=== PATIENT | male | born 1985 | race Caucasian/White ===

== ENCOUNTER 2023-12-26 11:07 | Inpatient (IN) | payer BC ==
[2023-12-26 11:23] VITALS: BMI 18.8
[2023-12-26] MEDS ORDERED: DICYCLOMINE HCL 10 MG CAPSULE PO PRN (13:12)
[2023-12-26] MEDS ORDERED: NALOXONE HCL (KLOXXADO) 8 MG SPRAY NS PRN (13:12)
[2023-12-26] MEDS ORDERED: BENZOCAINE/MENTHOL (CHLORASEPTIC ) LOZENGE MM PRN (13:12)
[2023-12-26] MEDS ORDERED: BENZONATATE 200 MG CAPSULE PO PRN (13:12)
[2023-12-26] MEDS ORDERED: BISMUTH SUBSALICYLATE 262 MG/15 ML BTL PO PRN (13:12)
[2023-12-26] MEDS ORDERED: NALOXONE HCL 0.4 MG/ML VIAL IM PRN (13:12)
[2023-12-26] MEDS ORDERED: LOPERAMIDE HCL 2 MG CAPSULE PO PRN (13:12)
[2023-12-26] MEDS ORDERED: POLYETHYLENE GLYCOL (HEALTHYLAX) 3350 17 GM PACKET PO PRN (13:12)
[2023-12-26] MEDS ORDERED: MAG HYDROX/AL HYDROX/SIMETH 30 ML UNIT-DOSE CUP PO PRN (13:12)
[2023-12-26] MEDS ORDERED: MAGNESIUM HYDROX 2400MG/30ML ORAL SUSPENSION 30 ML CUP PO PRN (13:12)
[2023-12-26] MEDS ORDERED: ACETAMINOPHEN 325 MG TABLET (FP) PO PRN (13:12)
[2023-12-26] MEDS ORDERED: guaiFENesin 600 MG TABLET.ER (FP) PO PRN (13:12)
[2023-12-26] MEDS ORDERED: ONDANSETRON *ODT* 4 MG TABLET SL PRN (13:12)
[2023-12-26] MEDS ORDERED: IBUPROFEN 400 MG TABLET (FP) PO PRN (13:12)
[2023-12-26] MEDS ORDERED: chlordiazePOXIDE HCL 25 MG CAPSULE PO PRN (13:15)
[2023-12-26] MEDS: chlordiazePOXIDE HCL 25 MG CAPSULE PO SCH (17:26)
[2023-12-26] MEDS: MELATONIN 5 MG TABLETS PO SCH (22:15)
[2023-12-26] MEDS: THIAMINE HCL 100 MG TABLET (FP) PO SCH (22:15)
[2023-12-27] MEDS: PRENATAL VITAMINS W/ FOLIC ACID TABLET (FP) PO SCH (10:08)
[2023-12-27] MEDS: NICOTINE 21 MG/24 HOURS TOPICAL PATCH TD SCH (10:08)
[2023-12-27] MEDS: NICOTINE POLACRILEX 4 MG GUM BUC PRN (10:11)
[2023-12-27 10:33] LABS: HEMATOCRIT 45.8 % (35.4-49); HEMOGLOBIN 15.4 GM/dL (11.7-16.9); MCH 33.3 pg (25.7-33.7); MCHC 33.7 g/dl (32.0-35.9); MEAN CELL VOLUME 98.9 fl (80-96); MEAN PLT VOLUME 8.3 fl (7.5-11.1); PLATELET COUNT 300 10^3/uL (134-434); RBC 4.63 M/mm3 (4.00-5.60); RDW 14.7 % (11.9-15.9); WHITE BLOOD COUNT 6.2 K/mm3 (4.0-10.0)
[2023-12-27 10:43] LABS: POTASSIUM 3.9 mmol/L (3.5-5.1)
[2023-12-27 10:47] LABS: ALBUMIN 3.9 g/dl (3.4-5.0); BLOOD UREA NITROGEN 10.4 mg/dL (7-18); CALCIUM 9.4 mg/dL (8.5-10.1)
[2023-12-27 10:51] LABS: CREATININE 0.8 mg/dL (0.55-1.3)
[2023-12-27 10:52] LABS: BILIRUBIN,TOTAL 0.9 mg/dL (0.2-1)
[2023-12-27 10:53] LABS: TOT PROT 7.4 g/dl (6.4-8.2)
[2023-12-27] MEDS: METHOCARBAMOL 500 MG TABLET PO PRN (17:30)
[2023-12-27] MEDS: hydrOXYzine PAMOATE 25 MG CAPSULE (FP) PO PRN (17:30)
[2023-12-27] MEDS: traZODone HCL 100 MG TABLET (FP) PO SCH (22:34)
[2023-12-28] MEDS: chlordiazePOXIDE HCL 25 MG CAPSULE PO SCH (06:11)
[2023-12-28 09:59] VITALS: RESP 16
[2023-12-28] MEDS: FLU VACCINE (FLULAVAL) PF 60 MCG/0.5 ML SYRINGE 2023-2024 IM ONE (12:18)
[2023-12-28 16:36] VITALS: BP 100/67; TEMP 97.5
[2023-12-28 17:15] VITALS: PULSE 71
[2023-12-28] MEDS: IBUPROFEN 600 MG TABLET (FP) PO PRN (18:20)
[2023-12-29] MEDS ORDERED: chlordiazePOXIDE HCL 10 MG CAPSULE PO PRN
[2023-12-29] MEDS: chlordiazePOXIDE HCL 10 MG CAPSULE PO SCH (05:07)
[2023-12-30] MEDS ORDERED: chlordiazePOXIDE HCL 10 MG CAPSULE PO SCH (05:00)
[2023-12-31] MEDS ORDERED: chlordiazePOXIDE HCL 10 MG CAPSULE PO ONE (05:00)
== END 2023-12-29 01:00 | disposition short-term general hospital (02) | DRG 775 ==
LOC: YASAS 11:07 → Y6N 13:36
PROVIDERS: ADMIT Allergy & Immunology; ATTEND Surgery
PROC: HZ2ZZZZ Detoxification Services for Substance Abuse Treatment (ICD-10-PCS; principal; 2023-12-25)
DX: F10.230 Alcohol dependence with withdrawal, uncomplicated (principal); F17.210 Nicotine dependence, cigarettes, uncomplicated; F10.282 Alcohol dependence with alcohol-induced sleep disorder; F10.24 Alcohol dependence with alcohol-induced mood disorder; F41.9 Anxiety disorder, unspecified; F32.A Depression, unspecified; H55.00 Unspecified nystagmus; S79.912A Unspecified injury of left hip, initial encounter; W19.XXXA Unspecified fall, initial encounter; Y92.231 Patient bathroom in hospital as the place of occurrence of the external cause; Z62.810 Personal history of physical and sexual abuse in childhood; Z63.8 Other specified problems related to primary support group; Z91.410 Personal history of adult physical and sexual abuse; Z63.0 Problems in relationship with spouse or partner
CPT/HCPCS: 36415; 80053; 80307; 85027; 86780; 87635; 90686; 93005; 93010; G0008

== ENCOUNTER 2023-12-28 19:00 | Inpatient (IN) | payer BC ==
[2023-12-28] MEDS: MECLIZINE HCL 25 MG TABLET (FP) PO ONE (20:56)
[2023-12-28] MEDS ORDERED: MECLIZINE HCL 25 MG TABLET (FP) ONE (20:57)
[2023-12-28 23:29] LABS: BASO % 1.3 % (0-2.0); EOS % 2.6 % (0-4.5); HEMATOCRIT 43.7 % (35.4-49); HEMOGLOBIN 14.6 GM/dL (11.7-16.9); LYMPH % 23.4 % (8-40); MCH 33.3 pg (25.7-33.7); MCHC 33.5 g/dl (32.0-35.9); MEAN CELL VOLUME 99.3 fl (80-96); MEAN PLT VOLUME 7.6 fl (7.5-11.1); MONO % 4.5 % (3.8-10.2); NEUT % 68.2 % (42.8-82.8); PLATELET COUNT 219 10^3/uL (134-434); RDW 14.4 % (11.9-15.9); WHITE BLOOD COUNT 6.7 K/mm3 (4.0-10.0)
[2023-12-28 23:44] LABS: CALCIUM 9.8 mg/dL (8.5-10.1)
[2023-12-28 23:47] LABS: CREATININE 0.7 mg/dL (0.55-1.3)
[2023-12-29] MEDS ORDERED: chlordiazePOXIDE HCL 10 MG CAPSULE PO PRN
[2023-12-29] MEDS ORDERED: chlordiazePOXIDE HCL 25 MG CAPSULE PO PRN (02:32)
[2023-12-29] MEDS: NICOTINE 21 MG/24 HOURS TOPICAL PATCH TD SCH (06:03)
[2023-12-29] MEDS: MECLIZINE HCL 25 MG TABLET (FP) PO SCH (06:03)
[2023-12-29] MEDS: chlordiazePOXIDE HCL 10 MG CAPSULE PO SCH (06:03)
[2023-12-29] MEDS: THIAMINE HCL 100 MG TABLET (FP) PO SCH (06:03)
[2023-12-29] MEDS: FOLIC ACID 1 MG TABLET (FP) PO SCH (06:03)
[2023-12-29] MEDS ORDERED: FOLIC ACID 1 MG TABLET (FP) ONE ×2 (06:04→10:40)
[2023-12-29] MEDS ORDERED: MECLIZINE HCL 25 MG TABLET (FP) ONE ×2 (06:04→10:49)
[2023-12-29] MEDS ORDERED: THIAMINE HCL 100 MG TABLET (FP) ONE ×2 (06:04→10:40)
[2023-12-29] MEDS ORDERED: chlordiazePOXIDE HCL 10 MG CAPSULE ONE (06:05)
[2023-12-29] MEDS ORDERED: NICOTINE 21 MG/24 HOURS TOPICAL PATCH ONE ×2 (06:05→10:41)
[2023-12-29 06:46] LABS: HEMATOCRIT 43.1 % (35.4-49); HEMOGLOBIN 14.9 GM/dL (11.7-16.9); MCH 34.4 pg (25.7-33.7); MCHC 34.6 g/dl (32.0-35.9); MEAN CELL VOLUME 99.4 fl (80-96); MEAN PLT VOLUME 8.4 fl (7.5-11.1); PLATELET COUNT 209 10^3/uL (134-434); RBC 4.33 M/mm3 (4.00-5.60); WHITE BLOOD COUNT 6.2 K/mm3 (4.0-10.0)
[2023-12-29 07:04] LABS: CALCIUM 8.6 mg/dL (8.5-10.1)
[2023-12-29 07:05] LABS: BLOOD UREA NITROGEN 10.5 mg/dL (7-18); MAGNESIUM 1.9 mg/dL (1.8-2.4)
[2023-12-29 07:08] LABS: CREATININE 0.6 mg/dL (0.55-1.3)
[2023-12-29 07:09] LABS: BILIRUBIN,TOTAL 0.3 mg/dL (0.2-1)
[2023-12-29 07:13] LABS: ALBUMIN 2.9 g/dl (3.4-5.0)
[2023-12-29] MEDS: INSULIN ASPART SLIDING SCALE (NOVOLOG) 1 VIAL SQ SCH (08:36)
[2023-12-29] MEDS ORDERED: ENOXAPARIN NA (PORCINE) 40 MG/0.4 ML DISP.SYRIN SQ ONE (10:41)
[2023-12-29] MEDS: ENOXAPARIN NA (PORCINE) 40 MG/0.4 ML DISP.SYRIN SQ SCH (10:48)
[2023-12-29] MEDS ORDERED: chlordiazePOXIDE HCL 25 MG CAPSULE PO SCH (18:00)
[2023-12-29] MEDS: THIAMINE HCL 200 MG/2 ML VIAL IVPB SCH (18:48)
[2023-12-29] MEDS: chlordiazePOXIDE HCL 25 MG CAPSULE PO SCH (23:21)
[2023-12-30 00:28] LABS: PH,URINE 6.5 (5.0-8.0); URINE APPEARANCE CLEAR; URINE BILIRUBIN NEGATIVE (NEGATIVE); URINE COLOR YELLOW; URINE GLUCOSE (UA) NEGATIVE (NEGATIVE); URINE KETONE NEGATIVE (NEGATIVE); URINE LEUK ESTERASE NEGATIVE (NEGATIVE); URINE NITRITE NEGATIVE (NEGATIVE); URINE PROTEIN NEGATIVE (NEGATIVE); URINE UROBILINOGEN 0.2 mg/dL (0.2-1.0)
[2023-12-30] MEDS: chlordiazePOXIDE HCL 10 MG CAPSULE PO ONE (06:35)
[2023-12-30] MEDS ORDERED: chlordiazePOXIDE HCL 25 MG CAPSULE PO SCH (08:00)
[2023-12-30] MEDS: ASPIRIN 81 MG CHEWABLE TABLETS PO SCH (10:47)
[2023-12-30 10:55] LABS: BASO % 0.6 % (0-2.0); EOS % 2.7 % (0-4.5); HEMATOCRIT 43.9 % (35.4-49); LYMPH % 24.5 % (8-40); MCH 33.4 pg (25.7-33.7); MCHC 34.1 g/dl (32.0-35.9); MEAN PLT VOLUME 7.7 fl (7.5-11.1); NEUT % 67.2 % (42.8-82.8); PLATELET COUNT 198 10^3/uL (134-434); RBC 4.48 M/mm3 (4.00-5.60); RDW 13.8 % (11.9-15.9); WHITE BLOOD COUNT 6.5 K/mm3 (4.0-10.0)
[2023-12-30 11:10] LABS: POTASSIUM 3.7 mmol/L (3.5-5.1)
[2023-12-30 11:18] LABS: CALCIUM 9.1 mg/dL (8.5-10.1); CREATININE 0.9 mg/dL (0.55-1.3)
[2023-12-30 11:19] LABS: ALBUMIN 3.2 g/dl (3.4-5.0); BLOOD UREA NITROGEN 11.7 mg/dL (7-18)
[2023-12-30 11:20] LABS: BILIRUBIN,TOTAL 0.3 mg/dL (0.2-1); TOT PROT 6.5 g/dl (6.4-8.2)
[2023-12-30] MEDS: chlordiazePOXIDE HCL 25 MG CAPSULE PO SCH (14:00)
[2023-12-30 16:19] VITALS: BMI 19.3
[2023-12-30] MEDS: THIAMINE HCL 200 MG/2 ML VIAL IVPB SCH (18:40)
[2023-12-30] MEDS: ATORVASTATIN CA 40 MG TABLET (FP) PO SCH (21:29)
[2023-12-30] MEDS: traZODone HCL 100 MG TABLET (FP) PO SCH (21:29)
[2023-12-30] MEDS: busPIRone HCL 10 MG TABLET (FP) PO SCH (21:31)
[2023-12-31] MEDS ORDERED: NICOTINE POLACRILEX 4 MG GUM BUC PRN (08:51)
[2023-12-31 09:01] LABS: BASO % 1.2 % (0-2.0); EOS % 4.1 % (0-4.5); HEMATOCRIT 43.3 % (35.4-49); HEMOGLOBIN 14.8 GM/dL (11.7-16.9); LYMPH % 34.6 % (8-40); MCH 33.8 pg (25.7-33.7); MCHC 34.3 g/dl (32.0-35.9); MEAN CELL VOLUME 98.6 fl (80-96); MEAN PLT VOLUME 7.7 fl (7.5-11.1); MONO % 5.9 % (3.8-10.2); NEUT % 54.2 % (42.8-82.8); PLATELET COUNT 193 10^3/uL (134-434); RDW 14.2 % (11.9-15.9)
[2023-12-31 09:14] LABS: POTASSIUM 4.2 mmol/L (3.5-5.1)
[2023-12-31 09:20] LABS: BLOOD UREA NITROGEN 16.7 mg/dL (7-18); CALCIUM 8.7 mg/dL (8.5-10.1); MAGNESIUM 2.1 mg/dL (1.8-2.4)
[2023-12-31 09:22] LABS: PHOSPHOROUS 4.4 mg/dL (2.5-4.9)
[2023-12-31 09:24] LABS: BILIRUBIN,TOTAL 0.3 mg/dL (0.2-1)
[2023-12-31] MEDS: PANTOPRAZOLE 40 MG TABLET PO SCH (09:27)
[2024-01-01 10:23] LABS: BASO % 1.9 % (0-2.0); EOS % 3.9 % (0-4.5); HEMATOCRIT 42.7 % (35.4-49); HEMOGLOBIN 14.5 GM/dL (11.7-16.9); LYMPH % 29.8 % (8-40); MCH 33.8 pg (25.7-33.7); MCHC 33.9 g/dl (32.0-35.9); MEAN CELL VOLUME 99.7 fl (80-96); MEAN PLT VOLUME 7.8 fl (7.5-11.1); NEUT % 57.4 % (42.8-82.8); PLATELET COUNT 175 10^3/uL (134-434); RBC 4.28 M/mm3 (4.00-5.60); RDW 14.1 % (11.9-15.9); WHITE BLOOD COUNT 5.4 K/mm3 (4.0-10.0)
[2024-01-01 11:12] LABS: POTASSIUM 4.3 mmol/L (3.5-5.1)
[2024-01-01 11:16] LABS: ALBUMIN 3.1 g/dl (3.4-5.0); BLOOD UREA NITROGEN 12.7 mg/dL (7-18)
[2024-01-01 11:22] LABS: BILIRUBIN,TOTAL 0.2 mg/dL (0.2-1); TOT PROT 6.2 g/dl (6.4-8.2)
[2024-01-01 11:23] LABS: CALCIUM 9.1 mg/dL (8.5-10.1)
[2024-01-01] MEDS: ATORVASTATIN CA 80 MG TABLET (FP) PO SCH (21:30)
[2024-01-02] MEDS: THIAMINE HCL 200 MG/2 ML VIAL IVPB SCH (09:20)
[2024-01-02 10:30] LABS: BASO % 2.3 % (0-2.0); EOS % 3.6 % (0-4.5); HEMATOCRIT 41.8 % (35.4-49); HEMOGLOBIN 14.2 GM/dL (11.7-16.9); LYMPH % 31.4 % (8-40); MCH 33.7 pg (25.7-33.7); MCHC 33.8 g/dl (32.0-35.9); MEAN CELL VOLUME 99.7 fl (80-96); MEAN PLT VOLUME 8.4 fl (7.5-11.1); MONO % 7.9 % (3.8-10.2); NEUT % 54.8 % (42.8-82.8); PLATELET COUNT 187 10^3/uL (134-434); RDW 14.1 % (11.9-15.9)
[2024-01-02 10:38] LABS: POTASSIUM 4.2 mmol/L (3.5-5.1)
[2024-01-02 10:40] LABS: ALBUMIN 3.1 g/dl (3.4-5.0); CALCIUM 8.6 mg/dL (8.5-10.1)
[2024-01-02 10:41] LABS: BLOOD UREA NITROGEN 13.8 mg/dL (7-18)
[2024-01-02 10:45] LABS: BILIRUBIN,TOTAL 0.2 mg/dL (0.2-1)
[2024-01-02 10:46] LABS: CREATININE 1.1 mg/dL (0.55-1.3)
[2024-01-02 16:12] VITALS: BP 104/58; PULSE 70; RESP 16; TEMP 97.9
== END 2024-01-02 15:15 | disposition other institution (70) | DRG 421 ==
LOC: JER 19:00 → JERBED 23:07 → J5S 12-29 14:22
PROVIDERS: ADMIT Internal Medicine
PROC: HZ2ZZZZ Detoxification Services for Substance Abuse Treatment (ICD-10-PCS; principal; 2023-12-28)
DX: E51.2 Wernicke's encephalopathy (principal); R42 Dizziness and giddiness; F10.239 Alcohol dependence with withdrawal, unspecified; F41.8 Other specified anxiety disorders; H83.09 Labyrinthitis, unspecified ear; H81.09 Meniere's disease, unspecified ear; H81.10 Benign paroxysmal vertigo, unspecified ear
CPT/HCPCS: 36415; 70450-TC; 70551-TC; 73502-TC-LT-FY; 80048; 80053; 81003; 82607; 82746; 82962; 83036; 83735; 84100; 84484; 85025; 85027; 87635; 93005; 93010; 97116-GP; 97161-GP; 99285-25

== ENCOUNTER 2024-01-02 15:36 | Inpatient (IN) | payer BC ==
[2024-01-02 16:56] VITALS: BMI 20.3
[2024-01-02] MEDS ORDERED: LOPERAMIDE HCL 2 MG CAPSULE PO PRN (19:04)
[2024-01-02] MEDS ORDERED: MAGNESIUM HYDROX 2400MG/30ML ORAL SUSPENSION 30 ML CUP PO PRN (19:04)
[2024-01-02] MEDS ORDERED: MAG HYDROX/AL HYDROX/SIMETH 30 ML UNIT-DOSE CUP PO PRN (19:04)
[2024-01-02] MEDS ORDERED: NALOXONE HCL 0.4 MG/ML VIAL IM PRN (19:04)
[2024-01-02] MEDS ORDERED: BENZONATATE 200 MG CAPSULE PO PRN (19:04)
[2024-01-02] MEDS ORDERED: POLYETHYLENE GLYCOL (HEALTHYLAX) 3350 17 GM PACKET PO PRN (19:04)
[2024-01-02] MEDS ORDERED: ACETAMINOPHEN 325 MG TABLET (FP) PO PRN (19:04)
[2024-01-02] MEDS ORDERED: guaiFENesin 600 MG TABLET.ER (FP) PO PRN (19:04)
[2024-01-02] MEDS ORDERED: BENZOCAINE/MENTHOL (CHLORASEPTIC ) LOZENGE MM PRN (19:04)
[2024-01-02] MEDS ORDERED: NALOXONE HCL (KLOXXADO) 8 MG SPRAY NS PRN (19:04)
[2024-01-02] MEDS ORDERED: TUBERCULIN PPD 5 TU/0.1ML VIAL ID ONE ×2 (22:44→23:14)
[2024-01-02] MEDS: THIAMINE HCL 100 MG TABLET (FP) PO SCH (22:53)
[2024-01-02] MEDS: ATORVASTATIN CA 80 MG TABLET (FP) PO SCH (22:53)
[2024-01-02] MEDS: traZODone HCL 100 MG TABLET (FP) PO SCH (22:53)
[2024-01-02] MEDS: MELATONIN 5 MG TABLETS PO SCH (22:57)
[2024-01-02] MEDS: TUBERCULIN PPD 5 TU/0.1ML SYRINGE (IN PATIENT USE ONLY) ID ONE (22:57)
[2024-01-03] MEDS: PRENATAL VITAMINS W/ FOLIC ACID TABLET (FP) PO SCH (09:32)
[2024-01-03] MEDS: ASPIRIN 81 MG CHEWABLE TABLETS PO SCH (09:32)
[2024-01-03] MEDS: MECLIZINE HCL 25 MG TABLET (FP) PO PRN (10:21)
[2024-01-03] MEDS: PANTOPRAZOLE 40 MG TABLET PO SCH (10:21)
[2024-01-03] MEDS: NICOTINE 21 MG/24 HOURS TOPICAL PATCH TD SCH (10:22)
[2024-01-04] MEDS: MELATONIN 5 MG TABLETS PO SCH (21:20)
[2024-01-06] MEDS ORDERED: NICOTINE 21 MG/24 HOURS TOPICAL PATCH TD PRN (10:12)
[2024-01-07] MEDS: hydrOXYzine PAMOATE 25 MG CAPSULE (FP) PO PRN (12:58)
[2024-01-09] MEDS: NICOTINE POLACRILEX 2 MG GUM BUC PRN (13:04)
[2024-01-14] MEDS: traZODone HCL 100 MG TABLET (FP) PO SCH (21:13)
[2024-01-20] MEDS: NALTREXONE HCL 50 MG TABLET PO ONE (14:48)
[2024-01-22] MEDS: NALTREXONE HCL 50 MG TABLET PO SCH (10:19)
[2024-01-23] MEDS: NALTREXONE MICROSPHERES (VIVITROL) 380 MG DISP.SYRIN IM ONE (12:37)
[2024-01-25] MEDS: IBUPROFEN 600 MG TABLET (FP) PO PRN (08:03)
[2024-01-25] MEDS: IBUPROFEN 400 MG TABLET (FP) PO PRN (21:49)
[2024-01-28 06:46] VITALS: RESP 16
[2024-01-29 06:02] VITALS: BP 118/76; PULSE 97; TEMP 99.1
[2024-01-29] MEDS: guaiFENesin 200 MG/10 ML 10 ML UNIT-DOSE CUPS PO ONE (06:42)
== END 2024-01-29 06:55 | disposition home or self-care (01) | DRG 772 ==
LOC: YASAS 15:36 → Y3E 22:06 → Y3NR 01-04 15:12 → Y3E 01-04 15:15
PROVIDERS: ADMIT Allergy & Immunology; ATTEND Psychiatry & Neurology Pain Medicine
PROC: HZ42ZZZ Group Counseling for Substance Abuse Treatment, Cognitive-Behavioral (ICD-10-PCS; principal; 2024-01-02)
DX: F10.20 Alcohol dependence, uncomplicated (principal); F17.210 Nicotine dependence, cigarettes, uncomplicated; F10.282 Alcohol dependence with alcohol-induced sleep disorder; F10.24 Alcohol dependence with alcohol-induced mood disorder; F41.9 Anxiety disorder, unspecified; F32.A Depression, unspecified; M25.572 Pain in left ankle and joints of left foot; Z99.89 Dependence on other enabling machines and devices
CPT/HCPCS: 80305; 87635; J2315

== ENCOUNTER 2024-05-08 22:33 | Inpatient (IN) | payer BC ==
[2024-05-08 23:08] VITALS: BMI 20.2
[2024-05-08] MEDS ORDERED: BENZONATATE 200 MG CAPSULE PO PRN (23:35)
[2024-05-08] MEDS ORDERED: IBUPROFEN 600 MG TABLET (FP) PO PRN (23:35)
[2024-05-08] MEDS ORDERED: ACETAMINOPHEN 325 MG TABLET (FP) PO PRN (23:35)
[2024-05-08] MEDS ORDERED: BENZOCAINE/MENTHOL (CHLORASEPTIC ) LOZENGE MM PRN (23:35)
[2024-05-08] MEDS ORDERED: guaiFENesin 600 MG TABLET.ER (FP) PO PRN (23:35)
[2024-05-08] MEDS ORDERED: MAG HYDROX/AL HYDROX/SIMETH 30 ML UNIT-DOSE CUP PO PRN (23:35)
[2024-05-08] MEDS ORDERED: ONDANSETRON *ODT* 4 MG TABLET SL PRN (23:35)
[2024-05-08] MEDS ORDERED: NALOXONE (NARCAN) HCL 4 MG/0.1 ML SPRAY NS PRN (23:35)
[2024-05-08] MEDS ORDERED: hydrOXYzine PAMOATE 25 MG CAPSULE (FP) PO PRN (23:35)
[2024-05-08] MEDS ORDERED: BISMUTH SUBSALICYLATE 524 MG/30 ML PO PRN (23:35)
[2024-05-08] MEDS ORDERED: MAGNESIUM HYDROX 2400MG/30ML ORAL SUSPENSION 30 ML CUP PO PRN (23:35)
[2024-05-08] MEDS ORDERED: NALOXONE HCL 0.4 MG/ML VIAL IM PRN (23:35)
[2024-05-08] MEDS ORDERED: POLYETHYLENE GLYCOL (HEALTHYLAX) 3350 17 GM PACKET PO PRN (23:35)
[2024-05-08] MEDS ORDERED: DICYCLOMINE HCL 10 MG CAPSULE PO PRN (23:35)
[2024-05-08] MEDS ORDERED: LOPERAMIDE HCL 2 MG CAPSULE PO PRN (23:35)
[2024-05-08] MEDS ORDERED: chlordiazePOXIDE HCL 25 MG CAPSULE PO PRN (23:37)
[2024-05-08] MEDS ORDERED: chlordiazePOXIDE HCL 25 MG CAPSULE ONE (23:44)
[2024-05-08] MEDS: chlordiazePOXIDE HCL 25 MG CAPSULE PO SCH (23:45)
[2024-05-09] MEDS: PRENATAL VITAMINS W/ FOLIC ACID TABLET (FP) PO SCH (09:58)
[2024-05-09] MEDS: NICOTINE 21 MG/24 HOURS TOPICAL PATCH TD SCH (09:58)
[2024-05-09] MEDS: NICOTINE POLACRILEX 4 MG GUM BUC PRN (09:58)
[2024-05-09 13:20] LABS: CHLORIDE 100 mmol/L (98-107); POTASSIUM 3.6 mmol/L (3.5-5.1); SODIUM 137 mmol/L (136-145)
[2024-05-09 13:27] LABS: ALBUMIN 3.5 g/dl (3.4-5.0); ANION GAP 4 mmol/L (4-13); BLOOD UREA NITROGEN 7.3 mg/dL (7-18); CALCIUM 9.3 mg/dL (8.5-10.1); CO2 32 mmol/L (21-32); GLUCOSE,RANDOM 130 mg/dL (74-106)
[2024-05-09 13:30] LABS: SGOT/AST 48 U/L (15-37)
[2024-05-09 13:31] LABS: SGPT/ALT 62 U/L (13-61)
[2024-05-09 13:32] LABS: BILIRUBIN,TOTAL 1.5 mg/dL (0.2-1); TOT PROT 6.8 g/dl (6.4-8.2)
[2024-05-09 13:33] LABS: ALK PHOS 141 U/L (45-117); HEMOGLOBIN 17.3 GM/dL (11.7-16.9); MCH 33.4 pg (25.7-33.7); MCHC 34.5 g/dl (32.0-35.9); MEAN CELL VOLUME 96.9 fl (80-96); MEAN PLT VOLUME 8.3 fl (7.5-11.1); PLATELET COUNT 182 10^3/uL (134-434); RBC 5.16 M/mm3 (4.00-5.60); RDW 15.4 % (11.9-15.9); WHITE BLOOD COUNT 5.7 K/mm3 (4.0-10.0)
[2024-05-09] MEDS: THIAMINE 100 MG TABLET PO SCH (22:24)
[2024-05-09] MEDS: traZODone HCL 50 MG TABLET (FP) PO SCH (22:24)
[2024-05-09] MEDS: busPIRone HCL 10 MG TABLET (FP) PO SCH (22:24)
[2024-05-09] MEDS: MELATONIN 5 MG TABLETS PO SCH (22:25)
[2024-05-10] MEDS: chlordiazePOXIDE HCL 25 MG CAPSULE PO SCH (05:16)
[2024-05-10] MEDS: PANTOPRAZOLE 40 MG TABLET PO SCH (10:35)
[2024-05-10] MEDS: ASPIRIN 81 MG CHEWABLE TABLETS PO SCH (10:35)
[2024-05-10] MEDS: MECLIZINE HCL 25 MG TABLET (FP) PO PRN (15:13)
[2024-05-11] MEDS ORDERED: chlordiazePOXIDE HCL 10 MG CAPSULE PO PRN
[2024-05-11] MEDS: chlordiazePOXIDE HCL 10 MG CAPSULE PO SCH (05:10)
[2024-05-11] MEDS ORDERED: chlordiazePOXIDE 5 MG CAPSULE ONE (10:58)
[2024-05-12] MEDS: chlordiazePOXIDE HCL 10 MG CAPSULE PO SCH (05:22)
[2024-05-12 12:19] LABS: HEMATOCRIT 44.4 % (35.4-49); HEMOGLOBIN 15.1 GM/dL (11.7-16.9); PLATELET COUNT 192 10^3/uL (134-434); RBC 4.44 M/mm3 (4.00-5.60); RDW 15.2 % (11.9-15.9); WHITE BLOOD COUNT 7.2 K/mm3 (4.0-10.0)
[2024-05-13] MEDS: chlordiazePOXIDE HCL 10 MG CAPSULE PO ONE (05:24)
[2024-05-13] MEDS: IBUPROFEN 400 MG TABLET (FP) PO PRN (05:24)
[2024-05-13 08:57] VITALS: BP 103/61; PULSE 77; RESP 19; TEMP 98.1
== END 2024-05-13 10:36 | disposition home or self-care (01) | DRG 775 ==
LOC: YASAS 22:33 → Y6N 23:34
PROVIDERS: ADMIT Allergy & Immunology; ATTEND Surgery
PROC: HZ2ZZZZ Detoxification Services for Substance Abuse Treatment (ICD-10-PCS; principal; 2024-05-08)
DX: F10.230 Alcohol dependence with withdrawal, uncomplicated (principal); F17.210 Nicotine dependence, cigarettes, uncomplicated; F10.24 Alcohol dependence with alcohol-induced mood disorder; F41.8 Other specified anxiety disorders; K21.9 Gastro-esophageal reflux disease without esophagitis; E80.6 Other disorders of bilirubin metabolism; R42 Dizziness and giddiness; Z86.73 Personal history of transient ischemic attack (TIA), and cerebral infarction without residual deficits; Z56.0 Unemployment, unspecified; Z59.00 Homelessness unspecified
CPT/HCPCS: 36415; 80053; 80305; 80307; 82247; 85027; 86780; 93005; 93010